=== PATIENT | female | born 1985 | race African-American/Black ===

== ENCOUNTER 2017-08-29 08:38 | Emergency (ER) | payer BC ==
[~2017-08-29] VITALS: Ht 139.7 cm; Wt 59.0 kg
== END 2017-08-29 10:00 | disposition home or self-care (01) ==
LOC: FSED 08:38
DX: G43.011 Migraine without aura, intractable, with status migrainosus (principal); N64.4 Mastodynia; N64.52 Nipple discharge
CPT/HCPCS: 81025; 99282

== ENCOUNTER 2018-02-20 19:17 | Emergency (ER) | payer BC ==
[~2018-02-20] VITALS: Ht 144.8 cm; Wt 63.5 kg
[2018-02-20] MEDS ORDERED: ONDANSETRON HCL 4 MG ORAL DISINTEGRATING TAB PO ONE (20:15)
[2018-02-20] MEDS ORDERED: MEPERIDINE HCL/PF 25 MG/0.5 ML AMP IM ONE (20:15)
[2018-02-20] MEDS ORDERED: FENTANYL CITRATE/PF 100MCG/2 ML INJ IV ONE (20:30)
[2018-02-20 21:11] VITALS: BP 120/70
== END 2018-02-20 21:14 | disposition home or self-care (01) ==
LOC: FSED 19:17
DX: G43.019 Migraine without aura, intractable, without status migrainosus (principal)
CPT/HCPCS: 96372; 99281; J2175

== ENCOUNTER 2018-06-13 14:45 | Emergency (ER) | payer BC ==
[~2018-06-13] VITALS: Ht 144.8 cm; Wt 63.5 kg
[2018-06-13] MEDS ORDERED: ONDANSETRON HCL 4 MG ORAL DISINTEGRATING TAB PO ONE (16:15)
== END 2018-06-13 16:48 | disposition left against medical advice (07) ==
LOC: FSED 14:45
DX: R11.2 Nausea with vomiting, unspecified (principal); R10.13 Epigastric pain; R10.33 Periumbilical pain; R51 Headache
CPT/HCPCS: 80048; 80076; 81003; 81025; 85025; 99283; Q0162